=== PATIENT | female | born 1990 | race Caucasian/White ===

== ENCOUNTER 2017-02-02 09:38 | Emergency (ER) | payer OTHER ==
[~2017-02-02] VITALS: Ht 162.6 cm; Wt 55.0 kg
[2017-02-02 14:55] VITALS: BP 120/58
== END 2017-02-02 15:06 | disposition home or self-care (01) ==
LOC: ER 10:38
DX: F41.9 Anxiety disorder, unspecified (principal)
CPT/HCPCS: 81025; 93005; 99283